=== PATIENT | male | born 1965 | race Caucasian/White ===

== ENCOUNTER 2016-12-12 13:59 | Emergency (ER) | payer MEDICARE | END 2016-12-12 18:27 | disposition home or self-care (01) | LOC: ER1 13:59 | DX: M54.5 Low back pain (principal); G89.29 Other chronic pain; F17.210 Nicotine dependence, cigarettes, uncomplicated; Z79.899 Other long term (current) drug therapy | CPT/HCPCS: 72131; 96372; 99283; J1100; J1885 ==